=== PATIENT | female | born 1945 | race Caucasian/White ===

== ENCOUNTER → 2016-05-13 | Outpatient (CLI) | payer BC | LOC: GMAB 11:16 | PROVIDERS: ATTEND Family Medicine | DX: D50.0 Iron deficiency anemia secondary to blood loss (chronic) (principal); M25.50 Pain in unspecified joint; E55.9 Vitamin D deficiency, unspecified ==

== ENCOUNTER → 2016-05-18 | Outpatient (CLI) | payer BC ==
--- NOTE | 2016-05-20 09:31 | MAM ---
EXAM DESCRIPTION: MAMMO BREAST SCREENING BILATERAL CAD, images were reviewed with CAD technology, R2 computer-aided detection. CLINICAL HISTORY: [facility]. COMPARISON: 2016. FINDINGS: Routine views are obtained. Scattered glandular pattern with the increased mammographic density. increasing nodular asymmetry right breast upper outer quadrant. No dominant mass, architectural distortion or clustered microcalcification.. IMPRESSION: Incomplete exam. BIRAD CATEGORY: 0 INCOMPLETE RECOMMENDATIONS: FOLLOW-UP: Additional mammographic views with exaggerated lateral craniocaudal and true lateral views right breast. Spot compression views and directed ultrasound if indicated. According to the [employer], yearly mammograms are recommended starting at age 40 and continuing as long as a woman is in good health. Any breast change noted on a breast self-exam should be reported promptly to the patient's healthcare provider. Breast MRI is recommended for women with an approximately 20-25% or greater lifetime risk of breast cancer, including women with a strong family history of breast or ovarian cancer and women who have been treated for Hodgkin's disease. Electronically signed by: Tara Nugent 05/20/2016 09:28
== END | disposition home or self-care (01) ==
LOC: MAMMO 16:19
PROVIDERS: ATTEND Family Medicine
DX: Z12.31 Encounter for screening mammogram for malignant neoplasm of breast (principal)

== ENCOUNTER → 2016-06-04 | Outpatient (CLI) | payer BC ==
--- NOTE | 2016-06-04 13:28 | US ---
History: Increasing mammographic asymmetry upper outer quadrant right breast. DATE OF SERVICE: 06/04/2016 Services provided: Directed Limited right breast sonography. FINDINGS: Mammographic evaluation was not available mammogram from 09/2016 is compared with 2016 study with slightly increased upper outer quadrant right breast mammographic asymmetry and therefore addressed sonographically. Directed ultrasound exam demonstrates an island of normal fibroglandular tissue 10:00 5 cm from the nipple. No sonographic abnormality was noted with evaluation performed in the upper outer quadrant. IMPRESSION: Benign exam. Increasing mammographic asymmetry corresponds to an island of normal fibroglandular tissue. No sonographic evidence for malignancy. Recommendation: Routine annual mammography. Findings and recommendations were communicated to the patient by the technologist. 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
== END | disposition home or self-care (01) ==
LOC: MAMMO 06-03 15:05
PROVIDERS: ATTEND Family Medicine
DX: R92.8 Other abnormal and inconclusive findings on diagnostic imaging of breast (principal)

== ENCOUNTER → 2016-07-07 | Outpatient (CLI) | payer BC | END | disposition home or self-care (01) | LOC: YCFC.O 15:19 | PROVIDERS: ATTEND Nurse Practitioner Family | DX: Z79.891 Long term (current) use of opiate analgesic (principal) ==

== ENCOUNTER → 2016-08-25 | Outpatient (CLI) | payer BC | END | disposition home or self-care (01) | LOC: GMAL 10:43 | PROVIDERS: ATTEND Family Medicine | DX: E03.9 Hypothyroidism, unspecified (principal); E55.9 Vitamin D deficiency, unspecified ==

== ENCOUNTER → 2016-09-25 | Outpatient (CLI) | payer BC, MEDICARE ==
--- NOTE | 2016-09-27 13:46 | MRI ---
EXAM DESCRIPTION: Cervical Spine CLINICAL HISTORY: 70 years, Female, RADICULOPATHY arm and leg pain, numbness in both arms COMPARISON: None. FINDINGS: Standard sagittal and axial sequences. Russell cord abnormal signal characteristics except for mild degenerative type changes. C2-3 unremarkable. At C3-4 slight narrowing with mild bulging disc osteophyte centrally. At C4-5 narrowing with minimal bulge slightly asymmetric to the left. Mild facet degenerative change. At C5-6 narrowing with bulging disc osteophyte asymmetric to the right. Near complete flattening of the entire subarachnoid space. Mild facet degenerative change. At C6-7 severe disc space narrowing with left-sided protruding disc osteophyte, up to about 2.5 mm, flattening the thecal sac and nearly completely effacing the left side subarachnoid space. Mild facet degenerative change Minimal bulge asymmetric to left C7-T1 IMPRESSION: 1. Severe disc space narrowing C6-7 with left-sided protruding disc osteophyte flattening the left-sided thecal sac. 2. Narrowing with bulging disc osteophyte asymmetric to the right C5-6. Other moderate disc changes present as discussed Electronically signed by: Bartolo Cuevas MD 09/27/2016 1:46 PM CDT
--- NOTE | 2016-09-27 14:00 | MRI ---
EXAM DESCRIPTION: Lumbar Spine w/wo Contrast CLINICAL HISTORY: 70 years, Female, RADICULOPATHY COMPARISON: None. FINDINGS: Sagittal and axial sequences. Postcontrast sequences. Patient has had laminectomy with posterior fusion L3-S1. Pedicle screws and posterior fusion rods present. Large disc spacer present L5-S1. Other lumbar vertebral bodies unremarkable except for note of a Schmorl's node inferiorly at L2. Conus terminates at L1 Mild bulging disc noted at T11-12 on the sagittal sequences. Mild facet degenerative change L1-2 without significant disc disease. At L2-3 narrowing with diffuse bulging disc osteophyte. Disc extends into the exit foramen bilaterally particularly on the left where there is impingement on the exiting left L2 root. Facet degenerative change, more on the left, with slight impingement left lateral recess. Postsurgical changes L3-S1 without findings of hardware failure or abnormal contrast enhancement. Moderate magnetic field artifact associated with the metallic pedicle screws. IMPRESSION: 1. Narrowing L2-3 with diffuse bulging disc osteophyte extending into the exit foramen bilaterally. Encroachment on the exiting left L2 root. Left lateral recess encroachment. 2. Mild degenerative changes noted T11-T12 and L1-2 as discussed above 3. Posterior fusion L3-S1 without findings of hardware failure. No abnormal contrast seen. Electronically signed by: Bartolo Cuevas MD 09/27/2016 1:59 PM CDT
== END | disposition home or self-care (01) ==
LOC: MRI 07:05
PROVIDERS: ATTEND Family Medicine
DX: M50.00 Cervical disc disorder with myelopathy, unspecified cervical region (principal); M54.16 Radiculopathy, lumbar region

== ENCOUNTER → 2016-09-29 | Outpatient (CLI) | payer BC | END | disposition home or self-care (01) | LOC: YCFC.O 13:32 | PROVIDERS: ATTEND Anesthesiology Pain Medicine | DX: Z79.891 Long term (current) use of opiate analgesic (principal) ==

== ENCOUNTER → 2016-12-01 | Outpatient (CLI) | payer BC | END | disposition home or self-care (01) | LOC: GMAL 10:20 | PROVIDERS: ATTEND Family Medicine | DX: E55.9 Vitamin D deficiency, unspecified (principal) ==

== ENCOUNTER → 2016-12-10 | Outpatient (CLI) | payer BC ==
--- NOTE | 2016-12-10 12:42 | CT ---
EXAM DESCRIPTION: Head CLINICAL HISTORY: Cerebral infarction due to unspecified occlusion or stenosis of u COMPARISON: MRI scan of the brain on the same visit. TECHNIQUE: Spiral axial scans through the skull and brain, at 5.0 mm intervals, non-contrast. No reconstructions. Total Exam DLP: 677.23 mGy-cm. This exam was performed according to our departmental dose-optimization program which includes automated exposure control, adjustment of the mA and/or kV according to patient size and/or use of iterative reconstruction technique; to reduce radiation dose to as low as reasonably achievable (ALARA). FINDINGS: No hemorrhage, no mass-effect, and no midline shift. Heterogeneous low-density in the frontal periventricular white matter near the frontal horn of the left lateral ventricle. No abnormal radiodense objects in the brain parenchyma. Bilateral small basal ganglia calcifications. Vascular calcifications anterior and posterior; physiologic calcifications in the pineal gland and choroid plexus. No effacement or displacement of the ventricles, CSF spaces, or subdural spaces. No extra axial fluid collection or hemorrhage. No gross abnormalities of the bony calvarium. Included paranasal sinuses and mastoid air cells are well - aerated. IMPRESSION: 1. No hemorrhage, no mass effect, no midline shift. 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 Please refer to MRI brain without contrast today. 2. CT scans are insensitive for detecting small CVAs in the first 24 hours after onset. Evaluation of the brain stem is also limited. Electronically signed by: Ricky Neri MD 12/10/2016 12:41 PM CDT
--- NOTE | 2016-12-10 13:10 | MRI ---
EXAM DESCRIPTION: Brain w/oContrast CLINICAL HISTORY: CERBRAL INFARCT COMPARISON: CT scan of the head without contrast today. CT scan of the head without contrast 03/21/2016. TECHNIQUE: Multiplanar, high-field MRI unit, multiple diffusion sequences, multiple conventional sequences without contrast. FINDINGS: Portable bilateral foci of bright FLAIR and T2-weighted signal in the periventricular white matter and dent-white matter junctions of the cerebral hemispheres. Similar focal signal in the anterior left basal ganglia. No hemorrhage, no cerebral edema, no mass-effect. Normal signal in the brainstem and cerebellar hemispheres. No hemorrhage, no cerebral edema, no mass-effect. Concordance of the diffusion and non-diffusion sequences with no evidence of acute or subacute infarction. Cortical sulci, ventricles, and other CSF spaces, and the subdural spaces are normally configured. No effacement or displacement. No midline shift. No extra-axial hemorrhage. Normal flow signal void in the major vessels of the [place], and the venous sinuses. IACs are symmetric bilaterally. No fluid signal in the bilateral mastoid air cells. No mass effect in the bilateral cerebellopontine angles. Pituitary gland occupies approximately two thirds of the sella. Base of the cerebellar tonsils is above the foramen magnum. Normal signal in the paranasal sinuses. The bony calvarium is intact. IMPRESSION: 1. Most likely cerebral vascular small vessel disease involving the bilateral periventricular white matter and subcortical white matter in the cerebral hemispheres. Migraine headaches and demyelinating process or unlikely. No mass effect hemorrhage or cerebral edema. Similar lesion in the anterior left basal ganglia. Consistent with appearance on the scan of the head today. 2. Normal MRI diffusion study with contrast with no evidence of acute or subacute infarction. Electronically signed by: Ricky Neri MD 12/10/2016 1:09 PM CDT
== END | disposition home or self-care (01) ==
LOC: LAB.O 14:43
PROVIDERS: ATTEND Specialist
DX: I63.50 Cerebral infarction due to unspecified occlusion or stenosis of unspecified cerebral artery (principal)

== ENCOUNTER → 2017-03-15 | Outpatient (CLI) | payer BC | END | disposition home or self-care (01) | LOC: GMAL 10:33 | PROVIDERS: ATTEND Family Medicine | DX: E55.9 Vitamin D deficiency, unspecified (principal); I10 Essential (primary) hypertension ==

== ENCOUNTER → 2017-06-15 | Outpatient (CLI) | payer BC | LOC: GMAL 11:02 | PROVIDERS: ATTEND Family Medicine | DX: Z00.00 Encounter for general adult medical examination without abnormal findings (principal) ==

== ENCOUNTER → 2017-07-06 | Outpatient (CLI) | payer BC ==
--- NOTE | 2017-07-09 09:16 | MAM ---
EXAM DESCRIPTION: 3D Screening BILATERAL : Digital Mammography. CLINICAL HISTORY: 71 years Female SCREENING . No complaints. Sister with breast cancer. Hysterectomy. Has taken HRT 5 or more years ago. Prior cyst aspiration left breast. COMPARISON: 2-D digital screening bilateral study 05/18/2016. Diagnostic right breast digital mammography and targeted right breast ultrasound 06/04/2016. Reports from prior examinations also reviewed. TECHNIQUE: Bilateral CC and MLO projection full-field images, 3-D tomosynthesis digital mammographic technique. Also bilateral synthesized CC/ MLO full-field images. CAD not utilized. FINDINGS: The breast parenchymal density pattern is: Heterogeneously dense breast tissue, which may obscure small masses. No skin thickening or nipple retraction . Bilateral solitary and grouped coarse calcifications and microcalcifications. Right breast axillary lymph node. No focal, stellate mass or density, focal asymmetry , and no suspicious microcalcifications bilaterally. Stable mammograms compared to prior study, taking into account differences in mammographic technique IMPRESSION: BI-RADS CATEGORY: 2 - BENIGN FINDINGS. FOLLOW UP: Routine digital bilateral screening, one year interval from June 2017. Written communication explaining the IMPRESSION and follow-up, will be mailed to the patient and referring health care provider. According to the [employer], yearly mammograms are recommended starting at age 40 and continuing as long as a woman is in good health. Any breast change noted on a breast self-exam should be reported promptly to the patient's healthcare provider. Breast MRI is recommended for women with an approximately 20-25% or greater lifetime risk of breast cancer, including women with a strong family history of breast or ovarian cancer and women who have been treated for Hodgkin's disease. A negative mammographic report should not delay tissue diagnosis in patients with significant clinical history or physical findings. Extremely dense breast tissue limits the sensitivity of digital mammography. Electronically signed by: Ricky Neri MD 07/09/2017 9:14 AM CDT
== END ==
LOC: MAMMO 09:00
PROVIDERS: ATTEND Family Medicine
DX: Z12.31 Encounter for screening mammogram for malignant neoplasm of breast (principal)

== ENCOUNTER → 2017-08-24 | Outpatient (CLI) | payer BC | LOC: GMAL 11:25 | PROVIDERS: ATTEND Family Medicine | DX: D51.3 Other dietary vitamin B12 deficiency anemia (principal); E55.9 Vitamin D deficiency, unspecified ==

== ENCOUNTER → 2017-12-03 | Outpatient (CLI) | payer BC | LOC: GMAL 11:15 | PROVIDERS: ATTEND Family Medicine | DX: D51.3 Other dietary vitamin B12 deficiency anemia (principal); E55.9 Vitamin D deficiency, unspecified ==